=== PATIENT | male | born 1990 | race Caucasian/White ===

== ENCOUNTER → 2024-01-25 10:48 | Outpatient (BNVA) | payer BC, SELFPAY | PROVIDERS: PCP Family Medicine; Visit Provider Family Medicine | DX: R03.0 Elevated blood-pressure reading, without diagnosis of hypertension (principal); F98.8 Other specified behavioral and emotional disorders with onset usually occurring in childhood and adolescence; M62.838 Other muscle spasm | CPT/HCPCS: 80053; 80061; 85025 ==

== ENCOUNTER → 2024-12-05 09:34 | Outpatient (BNVA) | payer BC, SELFPAY | PROVIDERS: PCP Family Medicine; Visit Provider Family Medicine | DX: Z02.4 Encounter for examination for driving license (principal) | CPT/HCPCS: 81000 ==